=== PATIENT | male | born 1980 | race Caucasian/White ===

== ENCOUNTER 2017-08-04 21:57 | Emergency (ER) | payer MEDICAID ==
[~2017-08-04] VITALS: Ht 175.3 cm; Wt 72.9 kg
[2017-08-04 22:04] VITALS: BP 131/89
[2017-08-04] MEDS ORDERED: PENI250T2 PO (22:41)
[2017-08-04] MEDS ORDERED: TRAM50TA2 PO (22:41)
[2017-08-04] MEDS ORDERED: IBUP-1986 PO (22:41)
== END 2017-08-04 22:52 | disposition home or self-care (01) ==
LOC: ER 21:58
DX: K08.89 Other specified disorders of teeth and supporting structures (principal); F17.200 Nicotine dependence, unspecified, uncomplicated
CPT/HCPCS: 99283